=== PATIENT | female | born 1955 | race Caucasian/White ===

== ENCOUNTER 2020-10-17 22:10 | Emergency (ER) | payer MEDICARE, OTHER ==
--- NOTE | 2020-10-17 22:24 | EDM.PDOC ---
ED HPI GENERAL MEDICAL PROBLEM - General Stated Complaint: leg pain- right leg Time Seen by Provider: 10/17/20 22:21 Source of Information: Reports: Patient History Limitations: Reports: No Limitations - History of Present Illness INITIAL COMMENTS - FREE TEXT/NARRATIVE: Rosario complains of right thigh pain since yesterday morning without any apparent injury,she woke up with it. Pain is moderate,nothing aggravates it. Nothing improves it. She has ah /o DVT and is on [facility] Coumadin,last INR check was on October 05,and it was slightly above therapeutic range.She denies any SOB,swelling or systemic symptoms eg fever. - Related Data Allergies Allergy/AdvReac Type Severity Reaction Status Date / Time No Known Allergies Allergy Verified 10/17/20 22:59 Home Meds: Home Meds Warfarin [Coumadin] 5 mg PO WE 10/17/20 [History] Warfarin [Coumadin] 7.5 mg PO SUMOTUTHFRSA 10/17/20 [History] lisinopriL [Lisinopril] 10 mg PO DAILY 10/18/20 [History] ED ROS GENERAL - Review of Systems Review Of Systems: Comprehensive ROS is negative, except as noted in HPI. ED EXAM, GENERAL - Physical Exam Exam: See Below Exam Limited By: No Limitations General Appearance: Alert, WD/WN, No Apparent Distress Nose: Normal Inspection Throat/Mouth: Normal Inspection Head: Atraumatic Respiratory/Chest: No Respiratory Distress Cardiovascular: Normal Peripheral Pulses Extremities: Normal Inspection, Other (Tender gracillis mucle right thigh. No redness or warmth) Course - Vital Signs Last Recorded V/S: Last Vital Signs Temp 99.1 F 10/17/20 22:20 Pulse 73 10/17/20 22:20 Resp 16 10/17/20 22:20 BP 200/80 H 10/17/20 23:20 Pulse Ox 97 10/17/20 22:20 - Orders/Labs/Meds Labs: Laboratory Tests 10/17/20 Range/Units 22:40 PT 22.4 H (9.0-11.1) sec INR 2.18 H (1.00-1.24) Departure - Departure Time of Disposition: 08:30 Disposition: Home, Self-Care 01 Clinical Impression: Thigh pain Qualifiers: Laterality: right Qualified Code(s): M79.651 - Pain in right thigh - Discharge Information Instructions: Muscle Strain, [id number] Referrals: PCP,Not In Area [Primary Care Provider] - Forms: ED Department Discharge Care Plan Goals: Follow up with primary physician early next week. - Problem List & Annotations (1) Thigh pain Status: Acute Qualifiers: Laterality: right Qualified Code(s): M79.651 - Pain in right thigh - Problem List Review Problem List Initiated/Reviewed/Updated: Yes - Assessment/Plan Plan: INR was therapeutic. DC home.
== END 2020-10-17 23:10 | disposition home or self-care (01) ==
LOC: FB.ED 22:10
DX: M79.651 Pain in right thigh (principal); Z79.01 Long term (current) use of anticoagulants; Z79.899 Other long term (current) drug therapy
CPT/HCPCS: 36415; 85610; 99282; 99283